=== PATIENT | male | born 1965 | race American Indian/Alaskan Native ===

== ENCOUNTER 2016-05-22 09:16 | Emergency (ER) | payer OTHER ==
[2016-05-22 09:53] VITALS: BP 161/109
--- NOTE | 2016-05-22 11:27 | Emergency Department Report ---
ED Extremity Problem HPI - General Chief complaint: Extremity Injury, Lower Stated complaint: GOUT LT FOOT Time Seen by Provider: 05/22/16 11:22 Source: patient Mode of arrival: Wheelchair Limitations: No Limitations - History of Present Illness MD Complaint: extremity pain, extremity swelling, joint swelling, joint paint -: Gradual Location: left, lower extremity, toe Severity scale (0 -10): 8 Quality: burning, aching, sharp, constant Improves with: medication Worsens with: weight bearing, walking, exertion, palpation - Related Data Previous Rx's Medication Instructions Recorded Last Taken Type HYDROcodone/APAP 7.5-325 [[place] 1 each PO Q6HR PRN #12 tablet 05/22/16 Unknown Rx 7.5/325] Indomethacin [Indocin] 25 mg PO Q8H #15 capsule 05/22/16 Unknown Rx Prednisone [predniSONE ([place]) ER 50 mg PO QDAY #5 tablet. 05/22/16 Unknown Rx TAB] Allergies Allergy/AdvReac Type Severity Reaction Status Date / Time No Known Allergies Allergy Unverified 05/22/16 09:48 ED Review of Systems ROS: Stated complaint: GOUT LT FOOT Other details as noted in HPI Constitutional: denies: chills, fever Eyes: denies: eye pain, eye discharge, vision change ENT: denies: ear pain, throat pain Respiratory: denies: cough, shortness of breath, wheezing Cardiovascular: denies: chest pain, palpitations Endocrine: no symptoms reported Gastrointestinal: denies: abdominal pain, nausea, diarrhea Genitourinary: denies: urgency, dysuria Musculoskeletal: joint swelling, arthralgia. denies: back pain Skin: denies: rash, lesions Neurological: denies: headache, weakness, paresthesias Psychiatric: denies: anxiety, depression ED Past Medical Hx - Past Medical History Hx Hypertension: Yes Hx Arthritis: Yes (GOUT) - Surgical History Past Surgical History?: No - Social History Smoking Status: Current Every Day Smoker Substance Use Type: Alcohol - Medications Home Medications: Home Medications Medication Instructions Recorded Confirmed Last Taken Type HYDROcodone/APAP 7.5-325 [[place] 1 each PO Q6HR PRN #12 tablet 05/22/16 Unknown Rx 7.5/325] Indomethacin [Indocin] 25 mg PO Q8H #15 capsule 05/22/16 Unknown Rx Prednisone [predniSONE ([place]) ER 50 mg PO QDAY #5 tablet. 05/22/16 Unknown Rx TAB] ED Physical Exam - General Limitations: No Limitations General appearance: alert, in no apparent distress - Head Head exam: Present: atraumatic, normocephalic - Eye Eye exam: Present: normal appearance - ENT ENT exam: Present: mucous membranes moist - Neck Neck exam: Present: normal inspection - Respiratory Respiratory exam: Present: normal lung sounds bilaterally. Absent: respiratory distress - Cardiovascular Cardiovascular Exam: Present: regular rate, normal rhythm. Absent: systolic murmur, diastolic murmur, rubs, gallop - GI/Abdominal GI/Abdominal exam: Present: soft, normal bowel sounds - Rectal Rectal exam: Present: deferred - Extremities Exam Extremities exam: Present: normal inspection, tenderness, joint swelling, other (left podagra) - Back Exam Back exam: Present: normal inspection - Neurological Exam Neurological exam: Present: alert, oriented X3 - Psychiatric Psychiatric exam: Present: normal affect, normal mood - Skin Skin exam: Present: warm, dry, intact, normal color. Absent: rash ED Course Vital Signs 05/22/16 09:45 Temperature 98.4 F Pulse Rate 98 H Respiratory 16 Rate Blood Pressure 161/109 O2 Sat by Pulse 100 Oximetry Critical care attestation.: If time is entered above; I have spent that time in minutes in the direct care of this critically ill patient, excluding procedure time. ED Disposition Clinical Impression: Gout attack Disposition: DISCHARGED TO HOME OR SELFCARE Is pt being admited?: No Condition: Stable Instructions: Acute Gouty Arthritis (ED) Prescriptions: HYDROcodone/APAP 7.5-325 [[place] 7.5/325] 1 each PO Q6HR PRN #12 tablet PRN Reason: Pain Indomethacin [Indocin] 25 mg PO Q8H #15 capsule Prednisone [predniSONE ([place]) ER TAB] 50 mg PO QDAY #5 tablet. Referrals: RAYMOND MARIE MD [Primary Care Provider] - 3-5 Days Forms: Work/School Release Form(ED)
[2016-05-22] MEDS ORDERED: TORADOL IM ONE (11:37)
[2016-05-22] MEDS ORDERED: DELTASONE PO ONE (11:37)
== END 2016-05-22 12:03 | disposition home or self-care (01) ==
LOC: ED 09:16
DX: M10.9 Gout, unspecified (principal); F17.200 Nicotine dependence, unspecified, uncomplicated; I10 Essential (primary) hypertension
CPT/HCPCS: 96372; 99282; J1885; J7512

== ENCOUNTER 2017-11-08 00:48 | Emergency (ER) | payer OTHER ==
[2017-11-08 01:17] VITALS: BP 183/115
[2017-11-08] MEDS ORDERED: ASPIRIN PO ONE (01:39)
[2017-11-08 02:01] LABS: Basophils # (Auto) 0.1 K/mm3 (0.0-0.1); Basophils % (Auto) 0.5 % (0.0-1.8); Eosinophils % (Auto) 0.2 % (0.0-4.3); Hematocrit 42.7 % (35.5-45.6); Hemoglobin 14.3 gm/dl (11.8-15.2); Lymphocytes # (Auto) 1.6 K/mm3 (1.2-5.4); Lymphocytes % (Auto) 15.4 % (13.4-35.0); Mean Corpuscular HGB Conc 34 % (32-34); Mean Corpuscular Hemoglobin 32 pg (28-32); Mean Corpuscular Volume 96 fl (84-94); Monocytes # (Auto) 1.1 K/mm3 (0.0-0.8); Monocytes % (Auto) 10.1 % (0.0-7.3); Platelet Count 347 K/mm3 (140-440); Red Blood Count 4.43 M/mm3 (3.65-5.03); Red Cell Distribution Width 12.9 % (13.2-15.2)
[2017-11-08 02:28] LABS: BUN/Creatinine Ratio 7; Blood Urea Nitrogen 6 mg/dL (9-20); Calcium 9.3 mg/dL (8.4-10.2); Hemolysis Index 1
== END 2017-11-08 01:46 | disposition left against medical advice (07) ==
LOC: ED 00:48
DX: M79.601 Pain in right arm (principal); Z53.21 Procedure and treatment not carried out due to patient leaving prior to being seen by health care provider
CPT/HCPCS: 36415; 80048; 84484; 85025; 93005; 93010